=== PATIENT | male | born 1960 | race Caucasian/White ===

== ENCOUNTER 2016-12-03 19:40 | Emergency (ER) | payer OTHER ==
[~2016-12-03] VITALS: Ht 180.3 cm; Wt 78.0 kg
[2016-12-03 20:09] LABS: BASOPHILS % (AUTO) 0.5 % (0.0-2.0); DIFF TOTAL % 100 %; EOSINOPHILS # (AUTO) 0.1 /CMM (0.0-0.7); EOSINOPHILS % (AUTO) 0.8 % (0.0-6.0); HEMATOCRIT 32 % (39-51); HEMOGLOBIN 10.8 g/dL (13.5-17.5); LYMPHOCYTES # (AUTO) 1.4 /CMM (0.8-4.8); LYMPHOCYTES % (AUTO) 18.2 % (20.0-44.0); MEAN CORPUSCULAR HEMOGLOBIN 30 PG (26.0-33.0); MEAN CORPUSCULAR HGB CONC 34 g/dl (31.0-36.0); MEAN CORPUSCULAR VOLUME 88 fL (80-96); MONOCYTES # (AUTO) 0.9 /CMM (0.1-1.30); NEUTROPHILS # (AUTO) 5.4 /CMM (1.8-8.9); NEUTROPHILS % (AUTO) 69.5 % (43.0-81.0); PLATELET COUNT (AUTO) 413 /CMM (150-450); RED BLOOD CELL COUNT(AUTO) 3.65 MIL/uL (4.5-6.0); WHITE BLOOD COUNT (AUTO) 7.8 K/uL (4.3-11.0)
[2016-12-03 20:19] LABS: ANION GAP 13 (5-14); CALCIUM, SERUM 9.3 mg/dL (8.5-10.1); CARBON DIOXIDE 27 mmol/L (21-32); CHLORIDE 99 mmol/L (98-107); CREATININE 1.2 mg/dL (0.6-1.3); GFR 63 mL/min (>60); GLUCOSE 91 mg/dL (74-106); POTASSIUM 3.9 mmol/L (3.5-5.1); SODIUM SERUM 135 mmol/L (136-145); UREA NITROGEN, BLOOD 26 mg/dL (7-18)
[2016-12-03 20:24] LABS: ALANINE AMINOTRANSFERASE 15 U/L (12-78); ALBUMIN 3.9 g/dL (3.4-5.0); ASPARTATE AMINOTRANSFERASE 20 U/L (15-37); BILIRUBIN,DIRECT 0.1 mg/dL (0.0-0.2); BILIRUBIN,TOTAL 0.3 mg/dL (0.2-1.0); INDIRECT BILIRUBIN 0.2 mg/dL (0.0-1.1); TOTAL PROTEIN, SERUM 8.1 g/dL (6.4-8.2)
[2016-12-03 20:44] LABS: KETONES,URINE Negative (NEGATIVE); LEUKOCYTE ESTERASE ,URINE Negative (NEGATIVE); PH,URINE 5.5 (5.0-8.0)
[2016-12-03 20:45] LABS: ADD UA MICROSCOPIC YES
[2016-12-03 20:50] LABS: CANNABINOID, URINE NEGATIVE (NEGATIVE); PHENCYCLIDINE SCREEN,URINE NEGATIVE (NEGATIVE)
[2016-12-03 21:06] LABS: ADD URINE CULTURE YES
[2016-12-03 21:08] LABS: COARSE GRANULAR CASTS,URINE Moderate /LPF (None Seen); OTHER CASTS, URINE MOD /LPF (None Seen)
[2016-12-04 06:16] VITALS: BP 129/75
== END 2016-12-04 06:17 | disposition home or self-care (01) ==
LOC: ER 19:44
DX: G89.29 Other chronic pain (principal); M54.9 Dorsalgia, unspecified; F20.9 Schizophrenia, unspecified; Z59.0 Homelessness
CPT/HCPCS: 36415; 80048-TC; 80076-TC; 80305; 81000-TC; 85025-TC; 87086-TC; A4606; G0480; Z7610